=== PATIENT | female | born 1980 | race Caucasian/White ===

== ENCOUNTER 2022-02-20 14:25 | Outpatient (CLI) | payer OTHER, SELFPAY ==
[2022-02-20 14:25] LABS: Albumin* 4.3 g/dL (3.3-5.0); Chloride* 104 mmol/L (96-114); Sodium* 136 mmol/L (135-149)
[2022-02-20 14:26] LABS: Potassium* 4.6 mmol/L (3.6-5.1)
[2022-02-20 14:27] LABS: Cholesterol* 255 mg/dL (90-199)
[2022-02-20 14:28] LABS: Alanine Aminotransferase* 14 U/L (4-35); Alkaline Phosphatase* 27 U/L (40-150); Aspartate Amino Transferase* 19 U/L (12-35); Bilirubin Total* 0.3 mg/dL (0.1-1.5); Blood Urea Nitrogen* 13 mg/dL (5-24); Carbon Dioxide* 25 mmol/L (20-32); Creatinine* 0.8 mg/dL (0.5-1.5); Estimated Glomerular Filt Rate 94 ml/min; Glucose* 92 mg/dL (60-115)
[2022-02-20 14:29] LABS: Calcium* 9.5 mg/dL (8.4-10.6); HDL Cholesterol* 69 mg/dL (>=50); LDL Cholesterol Calculated 163 mg/dL (<100); Triglycerides* 116 mg/dL (40-149)
== END 2022-02-20 14:26 | disposition home or self-care (01) ==
PROVIDERS: PCP Emergency Medicine; Visit Provider Emergency Medicine
DX: Z01.419 Encounter for gynecological examination (general) (routine) without abnormal findings (principal); E78.5 Hyperlipidemia, unspecified; Z86.39 Personal history of other endocrine, nutritional and metabolic disease; F41.9 Anxiety disorder, unspecified
CPT/HCPCS: 80053; 80061

== ENCOUNTER 2022-03-31 08:04 | Outpatient (CLI) | payer OTHER, SELFPAY ==
--- NOTE | 2022-03-31 08:15 | CRLHL7_ITS ---
For Patients: As a result of the Century Cures Act, medical imaging exams and procedure reports are released immediately into your electronic medical record. You may view this report before your referring provider. If you have questions, please contact your health care provider. BILATERAL SCREENING MAMMOGRAM WITH COMPUTER-AIDED DETECTION AND TOMOSYNTHESIS TECHNIQUE: CC and MLO views were obtained. These mammographic images have been obtained using full-field digital technique. These mammographic images were interpreted with the benefit of computer-aided detection. Breast Tomosynthesis was used in this interpretation. COMPARISON FILM: 02/22/20. FINDINGS: There are scattered areas of fibroglandular density IMPRESSION: There is no radiographic evidence for malignancy. ASSESSMENT: BI-RADS Category 1: Negative RECOMMENDATION: Routine screening mammogram in 1 year. A lay language report of this examination will be provided to the patient. Jairo Poe M.D. Diagnostic/Nuclear Medicine Radiologist [email or web address] MARLEE/vale Transcribed: 3:22 p.m. JOSELYN/Dictated by: Jairo Poe MD @ 03/31/2022 8:58:00 AM (Electronically Signed)
== END 2022-03-31 08:05 | disposition home or self-care (01) ==
LOC: MAMMO 08:04
PROVIDERS: PCP Emergency Medicine; Visit Provider Emergency Medicine
DX: Z12.31 Encounter for screening mammogram for malignant neoplasm of breast (principal)
CPT/HCPCS: 77063; 77067

== ENCOUNTER 2022-03-31 08:30 | Outpatient (CLI) | payer OTHER, SELFPAY ==
--- NOTE | 2022-03-31 09:00 | CRLHL7_ITS ---
For Patients: As a result of the Cures Act, medical imaging exams and procedure reports are released immediately into your electronic medical record. You may view this report before your referring provider. If you have questions, please contact your health care provider. INDICATION: Bumps on roof of mouth. TECHNIQUE: Noncontrast CT images acquired through the facial bones. COMPARISON: None. FINDINGS: No osteolysis or sclerosis of the hard palate. No concerning soft tissue protuberance or inflammatory stranding on this noncontrast exam. The facial bones are intact. No acute fracture or dislocation. The paranasal sinuses are well aerated. Rightward nasal septal deviation. Small leftward directed septal spur. The mastoid air cells are clear. The globes are symmetric in size. No retrobulbar hematoma or stranding. IMPRESSION: 1. No concerning soft tissue protuberance or inflammatory stranding on this noncontrast exam. No osteolysis or sclerosis of the hard palate. Please note that all CT scans at this facility use dose modulation, iterative reconstruction, and/or weight-based dosing when appropriate to reduce radiation dose to as low as reasonably achievable. Dictated by James Stiles MD @ 04/01/2022 8:36:17 AM (Electronically Signed)
== END 2022-03-31 08:31 | disposition home or self-care (01) ==
PROVIDERS: PCP Emergency Medicine; Visit Provider Otolaryngology
DX: K13.79 Other lesions of oral mucosa (principal)
CPT/HCPCS: 70486; 77063; 77067

== ENCOUNTER 2023-07-05 07:47 | Outpatient (REF) | payer OTHER, SELFPAY | END 2023-07-05 07:48 | disposition home or self-care (01) | LOC: NFLDREF 07:47 | PROVIDERS: PCP Emergency Medicine; Referring Provider Emergency Medicine; Visit Provider Emergency Medicine | DX: Z00.00 Encounter for general adult medical examination without abnormal findings (principal); E78.5 Hyperlipidemia, unspecified; E66.9 Obesity, unspecified | CPT/HCPCS: 80048; 80061 ==

== ENCOUNTER 2023-10-04 09:00 | Outpatient (CLI) | payer OTHER, SELFPAY ==
--- NOTE | 2023-10-04 09:15 | MM_ITS ---
Patient: BRET ALMANZA Facility:?[facility] Patient ID:?[id number] Site Patient ID:?[id number] Site :?[id number] Study:?XRay-Breast Bilateral 3D W/CAD-10/04/2023 10:08:07 AM Ordering Physician:?Natasha Peoples Final Report: BILATERAL SCREENING MAMMOGRAM WITH COMPUTER-AIDED DETECTION AND TOMOSYNTHESIS TECHNIQUE: CC and MLO views were obtained. These mammographic images have been obtained using full-field digital technique. These mammographic images were interpreted with the benefit of computer-aided detection. Breast tomosynthesis was used in this interpretation. COMPARISON FILM: 03/31/22, 02/22/20. FINDINGS: There are scattered areas of fibroglandular density. IMPRESSION: There is no radiographic evidence for malignancy. ASSESSMENT: BI-RADS Category 1: Negative RECOMMENDATION: Routine screening mammogram in 1 year. A lay language report of this examination will be provided to the patient. AURA MCCORMICK M.D. Diagnostic Radiologist [email or web address] RAQUEL/james D& Transcribed: 1:[address]/Dictated by: Aura Mccormick MD @ 10/05/2023 11:41:00 AM Signed by:?Aura Mccormick MD @10/05/2023 1:27:22 PM (Electronic Signature)
== END 2023-10-04 09:01 | disposition home or self-care (01) ==
LOC: MAMMO 09:00
PROVIDERS: PCP Emergency Medicine; Visit Provider Emergency Medicine
DX: Z12.31 Encounter for screening mammogram for malignant neoplasm of breast (principal)
CPT/HCPCS: 77063; 77067

== ENCOUNTER 2023-10-11 08:00 | Outpatient (CLI) | payer OTHER, SELFPAY | END 2023-10-11 08:01 | disposition home or self-care (01) | LOC: NFLDREF 10-15 19:47 | PROVIDERS: PCP Emergency Medicine; Referring Provider Emergency Medicine; Visit Provider Emergency Medicine | DX: E78.5 Hyperlipidemia, unspecified (principal) | CPT/HCPCS: 80061; 84443 ==

== ENCOUNTER 2024-07-31 08:45 | Outpatient (CLI) | payer OTHER, SELFPAY | END 2024-07-31 08:46 | disposition home or self-care (01) | LOC: NFLDREF 08-01 08:29 | PROVIDERS: PCP Emergency Medicine; Referring Provider Emergency Medicine; Visit Provider Emergency Medicine | DX: E78.2 Mixed hyperlipidemia (principal) | CPT/HCPCS: 80048; 80061 ==

== ENCOUNTER 2024-08-03 12:54 | Outpatient (CLI) | payer OTHER, SELFPAY ==
[2024-08-08 15:51] LABS: HPV Source Cervical; HPV, High Risk by TMA Not Detected
[2024-08-10 16:39] LABS: Pap Test Reviewed by Path Done
== END 2024-08-03 12:55 | disposition home or self-care (01) ==
PROVIDERS: PCP Emergency Medicine; Visit Provider Emergency Medicine
DX: Z12.4 Encounter for screening for malignant neoplasm of cervix (principal); Z11.51 Encounter for screening for human papillomavirus (HPV)
CPT/HCPCS: 87624; 87625; 88141; 88142